=== PATIENT | male | born 1985 | race Caucasian/White ===

== ENCOUNTER 2018-03-25 22:54 | Emergency (ER) | payer OTHER ==
[2018-03-25] MEDS ORDERED: PROPOFOL 200 MG/20 ML VIAL IV ONE (23:54)
[2018-03-25] MEDS ORDERED: FENTANYL CITR 100 MCG/2 ML ONE (23:57)
[2018-03-26] MEDS ORDERED: NA CHLORIDE 0.9% 1,000 ML ONE (00:01)
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
--- NOTE | 2018-03-26 08:29 | RAD REPORT ---
EXAM DESCRIPTION: RAD - Shoulder Right 2 View - 03/25/2018 11:43 pm CLINICAL HISTORY: Right shoulder pain status post fall FINDINGS: An anterior dislocation involves the right humeral head. No fractures seen
--- NOTE | 2018-03-26 08:30 | RAD REPORT ---
EXAM DESCRIPTION: RAD - Shoulder Right 2 View - 03/26/2018 12:24 am CLINICAL HISTORY: Right shoulder pain status post fall FINDINGS: The previously described dislocation has been reduced. A Hill-Sachs deformity is seen
== END 2018-03-26 00:54 | disposition home or self-care (01) ==
LOC: ER 22:54
PROC: 0RSJXZZ Reposition Right Shoulder Joint, External Approach (ICD-10-PCS; principal; 2018-03-26)
DX: S43.394A Dislocation of other parts of right shoulder girdle, initial encounter (principal); Y93.89 Activity, other specified; Y92.814 Boat as the place of occurrence of the external cause; F17.210 Nicotine dependence, cigarettes, uncomplicated
CPT/HCPCS: 96361; 96374; 96375; 99285; J3010; J7030